=== PATIENT | male | born 1950 | race Caucasian/White ===

== ENCOUNTER 2017-12-04 09:46 | Inpatient (IN) ==
[2017-12-04] MEDS ORDERED: MECLIZINE 25 MG TABLET PO STA (12:32)
[2017-12-04] MEDS ORDERED: ASPIRIN CHEW 81 MG TABLET PO STA (12:32)
[2017-12-04] MEDS ORDERED: SODIUM CHLORIDE 0.9% 1,000 ML IV STA (12:34)
[2017-12-04 13:26] LABS: Basophils # 0.1 10*3/uL (0.0-0.2); Basophils % 0.2 % (0.0-0.8); Hematocrit 35.7 VOL% (42.0-52.0); Hemoglobin 11.2 GM/DL (14.0-18.0); Immature Granulocytes % 0.4 %; Immature Granulocytes Absolute 0.16 #; Lymphocytes # 39.3 10*3/uL (1.4-4.0); Lymphocytes % 87.6 % (21.2-54.2); Mean Corpuscular HGB Conc 31.4 GM/DL (32-36); Mean Corpuscular Hemoglobin 30 PG (27-34); Mean Corpuscular Volume 94.4 FL (87-102); Mean Platelet Volume 9.8 FL (9.6-12.0); Monocytes # 4.1 10*3/uL (0.11-0.8); Neutrophils # 1.3 10*3/uL (1.4-7.4); Neutrophils % 2.8 % (38.7-73.9); Platelet Count 80 T/CUMM (130-400); Red Blood Count 3.78 MC/CUMM (3.8-5.5); Red Cell Distribution Width 13.1 % (9.3-17.3)
[2017-12-04] MEDS ORDERED: MECLIZINE 25 MG TABLET ONE (13:30)
[2017-12-04] MEDS ORDERED: ASPIRIN 325 MG TABLET ONE (13:31)
[2017-12-04 13:32] LABS: White Blood Count 44.9 T/CUMM (4-12)
[2017-12-04 13:49] LABS: Lymphocytes 97 % (20-55); Platelet Estimate Decreased; Segmented Neutrophils 3 % (50-85); Smudge Cells 2+; Total Cells Counted 100
[2017-12-04 13:50] LABS: Poikilocytosis 1+
[2017-12-04 13:51] LABS: Ovalocytes Few; Tear Drop Cells 1+
[2017-12-04 14:12] LABS: Alanine Aminotransferase 13 U/L (16-61); Albumin 2.7 G/DL (3.4-5.0); Alkaline Phosphatase 93 U/L (45-117); Aspartate Amino Transferase 21 U/L (0-37); Blood Urea Nitrogen 12 MG/DL (7-18); Calcium 8.4 MG/DL (8.5-10.1); Glucose 112 MG/DL (74-106); Osmolality,Calculated 279.4 MOS/KG (273-304); Potassium 4.4 MMOL/L (3.5-5.1); Sodium 140 MMOL/L (136-145); Total Protein 5.4 G/DL (6.4-8.3); Troponin I Only < 0.015 NG/ML (0.00-0.045)
[2017-12-04 15:46] LABS: Apearance,Urine CLEAR (Clear); Bilirubin,Urine Negative (Negative); Blood, Urine Negative (Negative); Glucose,Urine (UA) Negative (Negative); Ketones,Urine Negative (Negative); Mucus,Urine Few /LPF (Occasional); Nitrite,Urine Negative (Negative); Protein,Urine Negative; RBC,Urine 2 /HPF (0-4); Squamous Epithelial Cell,Urine Occasional /HPF (0-10); Urine Color Yellow (Yellow); Urine Specific Gravity 1.023 (1.001-1.035); Urine Urobilinogen < 2.0 EU/DL (0.2-1.0); WBC,Urine 1 /HPF (0-6)
[2017-12-04] MEDS ORDERED: DOCUSATE SODIUM 100 MG CAPSULE PO PRN (17:23)
[2017-12-04] MEDS ORDERED: LABETALOL 20 MG/4 ML SYRINGE IV PRN (17:23)
[2017-12-04] MEDS ORDERED: LACTULOSE 20 GM/30 ML UDCUP PO PRN (17:23)
[2017-12-04] MEDS ORDERED: ONDANSETRON 4 MG/2 ML VIAL IV PRN ×2 (17:23)
[2017-12-04] MEDS ORDERED: ACETAMINOPHEN 500 MG TABLET PO PRN (17:23)
[2017-12-04] MEDS ORDERED: ENOXAPARIN 40 MG/0.4 ML SYRINGE SUBCUT SCH (17:30)
[2017-12-04] MEDS: PIPERACILLIN/TAZOBACTAM 3,375 MG in SODIUM CHLORIDE 0.9% 100 ML IV SCH (18:02)
[2017-12-04] MEDS: SODIUM CHLORIDE 0.9% 1,000 ML IV SCH (18:02)
[2017-12-04 18:17] LABS: Cholesterol 109 MG/DL (50-200); HDL Cholesterol 23 MG/DL (40-60); Risk Ratio 4.74; Triglycerides 73 MG/DL (2-150); Troponin I Only < 0.015 NG/ML (0.00-0.045); VLDL CHOLESTEROL 14.6 MG/DL
[2017-12-04 19:18] LABS: Barbiturates Screen,Urine Negative (Negative); Benzodiazepines Screen,Urine Negative (Negative); Cannabinoid Screen,Urine Negative (Negative); Opiate Screen,Urine Negative (Negative); Phencyclidine Screen,Urine Negative (Negative)
[2017-12-04] MEDS: MECLIZINE 25 MG TABLET PO SCH (21:09)
[2017-12-05] MEDS: PIPERACILLIN/TAZOBACTAM 3,375 MG in SODIUM CHLORIDE 0.9% 100 ML IV SCH ×4 (01:15→23:27)
[2017-12-05] MEDS: SODIUM CHLORIDE 0.9% 1,000 ML IV SCH ×3 (01:16→17:17)
[2017-12-05 05:28] LABS: Calcium 7.7 MG/DL (8.5-10.1); Osmolality,Calculated 283.1 MOS/KG (273-304); Potassium 4.2 MMOL/L (3.5-5.1)
[2017-12-05 05:31] LABS: Basophils # 0.1 10*3/uL (0.0-0.2); Basophils % 0.2 % (0.0-0.8); Hematocrit 32.2 VOL% (42.0-52.0); Immature Granulocytes % 0.2 %; Immature Granulocytes Absolute 0.08 #; Lymphocytes # 35.7 10*3/uL (1.4-4.0); Lymphocytes % 96.5 % (21.2-54.2); Mean Corpuscular HGB Conc 31.1 GM/DL (32-36); Mean Corpuscular Hemoglobin 30 PG (27-34); Mean Corpuscular Volume 95.5 FL (87-102); Mean Platelet Volume 10.4 FL (9.6-12.0); Monocytes # 0.2 10*3/uL (0.11-0.8); Monocytes % 0.6 % (1.7-12.7); Neutrophils # 0.9 10*3/uL (1.4-7.4); Neutrophils % 2.5 % (38.7-73.9); Platelet Count 85 T/CUMM (130-400); Red Blood Count 3.37 MC/CUMM (3.8-5.5); Red Cell Distribution Width 13.2 % (9.3-17.3)
[2017-12-05 06:05] LABS: Atypical Lymphocytes 1+; Band Neutrophils 2 % (0-10); Lymphocytes 97 % (20-55); Macrocytosis 1+; Platelet Estimate Decreased; Segmented Neutrophils 1 % (50-85); Smudge Cells Few; Total Cells Counted 100
[2017-12-05] MEDS: MECLIZINE 25 MG TABLET PO SCH ×4 (08:36→21:19)
[2017-12-05] MEDS: TAMSULOSIN 0.4 MG CAPSULE PO SCH (08:37)
[2017-12-05] MEDS: PANTOPRAZOLE 40 MG TABLET PO SCH (08:37)
[2017-12-05] MEDS: ASPIRIN EC 325 MG TABLET PO SCH (08:37)
[2017-12-05] MEDS ORDERED: methylPREDNISolone 4 MG TABLET PO SCH (14:30)
[2017-12-05] MEDS: methylPREDNISolone 4 MG TABLET PO SCH (21:19)
[2017-12-06] MEDS: SODIUM CHLORIDE 0.9% 1,000 ML IV SCH (03:21)
[2017-12-06 05:08] LABS: Hematocrit 33.1 VOL% (42.0-52.0); Hemoglobin 10.5 GM/DL (14.0-18.0); Immature Granulocytes % 0.3 %; Immature Granulocytes Absolute 0.15 #; Lymphocytes # 45.2 10*3/uL (1.4-4.0); Lymphocytes % 95.9 % (21.2-54.2); Mean Corpuscular HGB Conc 31.7 GM/DL (32-36); Mean Corpuscular Hemoglobin 29 PG (27-34); Mean Corpuscular Volume 92.7 FL (87-102); Mean Platelet Volume 10.4 FL (9.6-12.0); Monocytes # 0.4 10*3/uL (0.11-0.8); Monocytes % 0.9 % (1.7-12.7); Neutrophils # 1.4 10*3/uL (1.4-7.4); Neutrophils % 2.9 % (38.7-73.9); Platelet Count 87 T/CUMM (130-400); Red Blood Count 3.57 MC/CUMM (3.8-5.5); Red Cell Distribution Width 13.2 % (9.3-17.3)
[2017-12-06 05:27] LABS: White Blood Count 47.1 T/CUMM (4-12)
[2017-12-06 05:32] LABS: Hypochromasia Slight; Lymphocytes 93 % (20-55); Ovalocytes Slight; Platelet Estimate Decreased; Segmented Neutrophils 7 % (50-85); Total Cells Counted 100
[2017-12-06 05:33] LABS: Atypical Lymphocytes Few; Giant Platelets Few; Smudge Cells Few
[2017-12-06 05:35] LABS: Calcium 7.7 MG/DL (8.5-10.1); Osmolality,Calculated 280.4 MOS/KG (273-304); Potassium 4.3 MMOL/L (3.5-5.1)
[2017-12-06] MEDS: PIPERACILLIN/TAZOBACTAM 3,375 MG in SODIUM CHLORIDE 0.9% 100 ML IV SCH (09:00)
[2017-12-06] MEDS: TAMSULOSIN 0.4 MG CAPSULE PO SCH (09:01)
[2017-12-06] MEDS: PANTOPRAZOLE 40 MG TABLET PO SCH (09:01)
[2017-12-06] MEDS: MECLIZINE 25 MG TABLET PO SCH (09:01)
[2017-12-06] MEDS: methylPREDNISolone 4 MG TABLET PO SCH (09:01)
[2017-12-06] MEDS: ASPIRIN EC 325 MG TABLET PO SCH (09:01)
[2017-12-06 12:48] VITALS: BP 102/62
== END 2017-12-06 13:40 | disposition home or self-care (01) | DRG 149 ==
LOC: N.ED 09:46 → N.EDINP 13:33 → N.TELEN 16:09
PROVIDERS: ADMIT Hospitalist; ATTEND Hospitalist

== ENCOUNTER 2018-08-18 13:31 | Inpatient (IN) ==
[2018-08-18] MEDS ORDERED: SODIUM CHLORIDE 0.9% 1,000 ML IV ONE (14:12)
[2018-08-18] MEDS ORDERED: DILTIAZEM 50 MG/10 ML VIAL IV STA (14:15)
[2018-08-18 14:30] LABS: Basophils % 0.1 % (0.0-0.8); Hematocrit 27.2 VOL% (42.0-52.0); Hemoglobin 8.5 GM/DL (14.0-18.0); Immature Granulocytes % 0.1 %; Immature Granulocytes Absolute 0.01 #; Lymphocytes # 11.5 10*3/uL (1.4-4.0); Lymphocytes % 98.2 % (21.2-54.2); Mean Corpuscular HGB Conc 31.3 GM/DL (32-36); Mean Corpuscular Hemoglobin 29 PG (27-34); Mean Corpuscular Volume 91.6 FL (87-102); Mean Platelet Volume 11.1 FL (9.6-12.0); Monocytes % 0.3 % (1.7-12.7); Neutrophils # 0.2 10*3/uL (1.4-7.4); Neutrophils % 1.3 % (38.7-73.9); Red Blood Count 2.97 MC/CUMM (3.8-5.5); Red Cell Distribution Width 17.2 % (9.3-17.3); White Blood Count 11.7 T/CUMM (4-12)
[2018-08-18] MEDS ORDERED: DILTIAZEM INJ 100 MG in SODIUM CHLORIDE 0.9% 100 ML IV SCH (14:30)
[2018-08-18 14:44] LABS: Alanine Aminotransferase 37 U/L (16-61); Albumin 1.1 G/DL (3.4-5.0); Alkaline Phosphatase 56 U/L (45-117); Aspartate Amino Transferase 16 U/L (0-37); Blood Urea Nitrogen 33 MG/DL (7-18); Calcium 7.2 MG/DL (8.5-10.1); Glucose 111 MG/DL (74-106); Osmolality,Calculated 282.7 MOS/KG (273-304); Potassium 4.4 MMOL/L (3.5-5.1); Sodium 138 MMOL/L (136-145); Total Protein 4.3 G/DL (6.4-8.3)
[2018-08-18 14:46] LABS: INR 1.3; PT Patient Result 13.6 SECS
[2018-08-18] MEDS ORDERED: PIPERACILLIN/TAZOBACTAM 3,375 MG in SODIUM CHLORIDE 0.9% 100 ML IV STA (14:55)
[2018-08-18] MEDS ORDERED: DILTIAZEM 25 MG/5 ML VIAL IV ONE (14:55)
[2018-08-18 14:57] LABS: Lactic Acid 3.6 MMOL/L (0.4-2.0); Partial Thromboplastin Time 46.8 SECS (0-40)
[2018-08-18] MEDS ORDERED: SODIUM CHLORIDE 0.9% 1,000 ML IV STA ×2 (15:07→15:37)
[2018-08-18] MEDS ORDERED: PHENYLEPHRINE DRIP 40 MG/250 ML PREMIX IV ONE (15:25)
[2018-08-18] MEDS: PHENYLEPHRINE DRIP 40 MG/250 ML PREMIX IV PRN ×3 (15:30→20:03)
[2018-08-18] MEDS ORDERED: dilTIAZem Drip 125 MG/125 ML PREMIX IV SCH (15:30)
[2018-08-18 15:37] LABS: Platelet Count 21 T/CUMM (130-400)
[2018-08-18 15:45] LABS: Lymphocytes 99 % (20-55); Segmented Neutrophils 1 % (50-85); Total Cells Counted 100
[2018-08-18 15:46] LABS: Hypochromasia Slight; Platelet Estimate Decreased; Smudge Cells Moderate
[2018-08-18] MEDS ORDERED: SODIUM CHLORIDE 0.9% 1,000 ML IV PRN ×2 (16:02→17:50)
[2018-08-18] MEDS ORDERED: PROPOFOL 1,000 MG/100 ML BOTTLE IV ONE (16:29)
[2018-08-18] MEDS ORDERED: SUCCINYLCHOLINE 200 MG/10 ML VIAL ONE (16:30)
[2018-08-18] MEDS ORDERED: ETOMIDATE 20 MG/10 ML VIAL IV ONE ×2 (16:30→17:59)
[2018-08-18] MEDS ORDERED: ONDANSETRON 4 MG/2 ML VIAL IV PRN (16:38)
[2018-08-18] MEDS ORDERED: PANTOPRAZOLE 40 MG TABLET PO SCH (16:38)
[2018-08-18] MEDS ORDERED: ACETAMINOPHEN 325 MG TABLET PO PRN (16:38)
[2018-08-18] MEDS ORDERED: AMIODARONE 450 MG/9 ML VIAL IV ONE (16:42)
[2018-08-18] MEDS ORDERED: AMIODARONE INJ 450 MG in DEXTROSE 5% 241 ML IV SCH (17:00)
[2018-08-18 17:04] LABS: Thyroid Stimulating Hormone 0.461 uIU/ml (0.358-3.74)
[2018-08-18 17:27] LABS: ABG Base Excess -7.5 MMOL/L (-2.5-2.5); ABG HCO3 18.9 MMOL/L (20-26); ABG Oxygen Saturation 98.7 % (95-100); ABG PCO2 41.8 MM HG (35-48); ABG PH 7.273 (7.35-7.45); ABG PO2 190.1 MM HG (80-95); ABG TCO2 20.2 MMOL/L (23-27)
[2018-08-18 17:50] LABS: Apearance,Urine CLOUDY (Clear); Bilirubin,Urine Negative (Negative); Blood, Urine Negative (Negative); Glucose,Urine (UA) Negative (Negative); Ketones,Urine Negative (Negative); Mucus,Urine Occasional /LPF (Occasional); Nitrite,Urine Negative (Negative); Protein,Urine 30 MG/DL; RBC,Urine 4 /HPF (0-4); Urine Specific Gravity 1.021 (1.001-1.035); WBC,Urine 6 /HPF (0-6)
[2018-08-18 17:51] LABS: Urine Color Yellow (Yellow)
[2018-08-18] MEDS ORDERED: SUCCINYLCHOLINE 200 MG/10 ML VIAL IV ONE (18:00)
[2018-08-18] MEDS: PROPOFOL 1,000 MG/100 ML BOTTLE IV SCH ×2 (18:14→23:12)
[2018-08-18] MEDS: MEROPENEM 1,000 MG in SODIUM CHLORIDE 0.9% 100 ML IV SCH (18:33)
[2018-08-18] MEDS: NOREPINEPHRINE 16 MG in SODIUM CHLORIDE 0.9% 234 ML IV PRN (18:40)
[2018-08-18 18:56] LABS: ABG Base Excess -7.3 MMOL/L (-2.5-2.5); ABG HCO3 19.1 MMOL/L (20-26); ABG Oxygen Saturation 97.5 % (95-100); ABG PCO2 42.5 MM HG (35-48); ABG PH 7.271 (7.35-7.45); ABG PO2 121.6 MM HG (80-95); ABG TCO2 20.4 MMOL/L (23-27)
[2018-08-18 19:04] LABS: Troponin I 0.222 NG/ML (0.00-0.045)
[2018-08-18] MEDS: VANCOMYCIN INJ 1,000 MG in SODIUM CHLORIDE 0.9% 250 ML IV SCH (19:07)
[2018-08-18] MEDS: HYDROCORTISONE 100 MG VIAL IV SCH (19:14)
[2018-08-18] MEDS: FAMOTIDINE 20 MG/2 ML VIAL IV SCH (19:14)
[2018-08-18] MEDS: SODIUM BICARB INJ 100 MEQ in SODIUM CHLORIDE 0.45% 1,000 ML IV SCH (20:23)
[2018-08-18] MEDS ORDERED: PIPERACILLIN/TAZOBACTAM 3,375 MG in SODIUM CHLORIDE 0.9% 100 ML IV SCH (21:00)
[2018-08-18] MEDS: PHENYLEPHRINE INJ 160 MG in SODIUM CHLORIDE 0.9% 234 ML IV PRN (21:56)
[2018-08-18] MEDS: AMIODARONE INJ 450 MG in DEXTROSE 5% 241 ML IV SCH (23:36)
[2018-08-19] MEDS: HYDROCORTISONE 100 MG VIAL IV SCH ×3 (01:40→17:22)
[2018-08-19] MEDS: MEROPENEM 1,000 MG in SODIUM CHLORIDE 0.9% 100 ML IV SCH ×3 (03:06→17:42)
[2018-08-19 04:39] LABS: Basophils # 0.1 10*3/uL (0.0-0.2); Basophils % 0.2 % (0.0-0.8); Hematocrit 29.3 VOL% (42.0-52.0); Hemoglobin 8.8 GM/DL (14.0-18.0); Lymphocytes # 38.5 10*3/uL (1.4-4.0); Lymphocytes % 99.3 % (21.2-54.2); Mean Corpuscular Hemoglobin 28 PG (27-34); Mean Corpuscular Volume 93.9 FL (87-102); Mean Platelet Volume 12.6 FL (9.6-12.0); Monocytes # 0.1 10*3/uL (0.11-0.8); Monocytes % 0.3 % (1.7-12.7); Neutrophils # 0.1 10*3/uL (1.4-7.4); Neutrophils % 0.2 % (38.7-73.9); Red Blood Count 3.12 MC/CUMM (3.8-5.5); Red Cell Distribution Width 17.3 % (9.3-17.3); White Blood Count 38.8 T/CUMM (4-12)
[2018-08-19 04:44] LABS: Platelet Count 41 T/CUMM (130-400)
[2018-08-19 04:58] LABS: Osmolality,Calculated 297.1 MOS/KG (273-304); Potassium 4.3 MMOL/L (3.5-5.1)
[2018-08-19 05:01] LABS: Alanine Aminotransferase 29 U/L (16-61); Albumin 1.1 G/DL (3.4-5.0); Alkaline Phosphatase 49 U/L (45-117); Aspartate Amino Transferase 21 U/L (0-37); Blood Urea Nitrogen 42 MG/DL (7-18); Calcium 6.5 MG/DL (8.5-10.1); Cholesterol < 50 MG/DL (50-200); Glucose 151 MG/DL (74-106); HDL Cholesterol 11 MG/DL (40-60); Potassium 4.3 MMOL/L (3.5-5.1); Risk Ratio 4.55; Sodium 143 MMOL/L (136-145); Total Protein 4.1 G/DL (6.4-8.3); Triglycerides 75 MG/DL (2-150)
[2018-08-19 05:02] LABS: ABG Base Excess -5.6 MMOL/L (-2.5-2.5); ABG HCO3 20.7 MMOL/L (20-26); ABG Oxygen Saturation 97.8 % (95-100); ABG PH 7.291 (7.35-7.45); ABG PO2 124.4 MM HG (80-95); ABG TCO2 22.1 MMOL/L (23-27); Allen Test Positive; Pt O2 Delivery Device Ventilator
[2018-08-19] MEDS: PHENYLEPHRINE INJ 160 MG in SODIUM CHLORIDE 0.9% 234 ML IV PRN ×3 (05:04→20:29)
[2018-08-19] MEDS: NOREPINEPHRINE 16 MG in SODIUM CHLORIDE 0.9% 234 ML IV PRN ×3 (05:04→19:29)
[2018-08-19 05:06] LABS: Lymphocytes 100 % (20-55); Platelet Estimate Decreased; Polychromasia Few; Total Cells Counted 100
[2018-08-19] MEDS: FAMOTIDINE 20 MG/2 ML VIAL IV SCH ×2 (05:23→17:42)
[2018-08-19] MEDS: VANCOMYCIN INJ 1,000 MG in SODIUM CHLORIDE 0.9% 250 ML IV SCH ×2 (05:23→19:17)
[2018-08-19 06:33] LABS: Troponin I 0.284 NG/ML (0.00-0.045)
[2018-08-19] MEDS: PROPOFOL 1,000 MG/100 ML BOTTLE IV SCH ×4 (07:30→23:45)
[2018-08-19] MEDS: ALBUMIN 25% 12.5 GM in PREMIX 1 EACH IV SCH ×3 (07:59→23:57)
[2018-08-19] MEDS: FUROSEMIDE 20 MG/2 ML VIAL IV SCH ×2 (08:20→16:42)
[2018-08-19] MEDS: SODIUM BICARB INJ 100 MEQ in SODIUM CHLORIDE 0.45% 1,000 ML IV SCH (08:22)
[2018-08-19] MEDS ORDERED: MAGNESIUM SULF RIDER 2 GM in PREMIX 1 EACH IV ONE (08:30)
[2018-08-19] MEDS ORDERED: DEXTROSE 50% 25 GM/50 ML SYRINGE IV PRN (08:58)
[2018-08-19] MEDS ORDERED: GLUCAGON 1 MG VIAL IM PRN (08:58)
[2018-08-19] MEDS ORDERED: CALCIUM GLUCONATE 2,000 MG in SODIUM CHLORIDE 0.9% 100 ML IV ONE (09:00)
[2018-08-19] MEDS ORDERED: SODIUM CHLORIDE 0.9% 1,000 ML IV PRN (12:04)
[2018-08-19] MEDS ORDERED: INSULIN GLARGINE 100 UNIT/ML SUBCUT SCH (12:30)
[2018-08-19] MEDS: INSULIN REGULAR 100 UNIT/ML SUBCUT SCH ×3 (12:48→23:57)
[2018-08-19] MEDS: AMIODARONE INJ 450 MG in DEXTROSE 5% 241 ML IV SCH (15:15)
[2018-08-19] MEDS: LEVALBUTEROL 1.25 MG/3 ML NEB RESP TX SCH ×2 (15:22→23:26)
[2018-08-19] MEDS: MORPHINE 4 MG/1 ML VIAL IV PRN (23:24)
[2018-08-20] MEDS: MEROPENEM 1,000 MG in SODIUM CHLORIDE 0.9% 100 ML IV SCH ×2 (01:05→02:26)
[2018-08-20] MEDS: HYDROCORTISONE 100 MG VIAL IV SCH (01:05)
[2018-08-20] MEDS: NOREPINEPHRINE 16 MG in SODIUM CHLORIDE 0.9% 234 ML IV PRN (02:42)
[2018-08-20 03:14] LABS: ABG Base Excess -0.8 MMOL/L (-2.5-2.5); ABG HCO3 23.8 MMOL/L (20-26); ABG Oxygen Saturation 98.7 % (95-100); ABG PCO2 39.1 MM HG (35-48); ABG PH 7.403 (7.35-7.45); ABG PO2 145.9 MM HG (80-95); Allen Test Positive; Pt O2 Delivery Device Ventilator
[2018-08-20] MEDS: PHENYLEPHRINE INJ 160 MG in SODIUM CHLORIDE 0.9% 234 ML IV PRN (03:39)
[2018-08-20 05:29] LABS: Basophils % 0.2 % (0.0-0.8); Hematocrit 24.7 VOL% (42.0-52.0); Hemoglobin 7.5 GM/DL (14.0-18.0); Lymphocytes # 12.2 10*3/uL (1.4-4.0); Lymphocytes % 96.4 % (21.2-54.2); Mean Corpuscular HGB Conc 30.4 GM/DL (32-36); Mean Corpuscular Hemoglobin 29 PG (27-34); Mean Corpuscular Volume 93.9 FL (87-102); Mean Platelet Volume 11.7 FL (9.6-12.0); Monocytes # 0.1 10*3/uL (0.11-0.8); Monocytes % 1.1 % (1.7-12.7); Neutrophils # 0.3 10*3/uL (1.4-7.4); Neutrophils % 2.3 % (38.7-73.9); Red Blood Count 2.63 MC/CUMM (3.8-5.5); Red Cell Distribution Width 17.3 % (9.3-17.3); White Blood Count 12.6 T/CUMM (4-12)
[2018-08-20 05:42] LABS: Platelet Count 15 T/CUMM (130-400)
[2018-08-20 05:45] LABS: Blood Urea Nitrogen 51 MG/DL (7-18); Calcium 6.4 MG/DL (8.5-10.1); Glucose 159 MG/DL (74-106); Osmolality,Calculated 310.3 MOS/KG (273-304); Potassium 3.4 MMOL/L (3.5-5.1); Prealbumin < 3.0 MG/DL (20-40); Sodium 148 MMOL/L (136-145)
[2018-08-20 06:06] LABS: Hypochromasia Slight; Lymphocytes 97 % (20-55); Platelet Estimate Decreased; Segmented Neutrophils 1 % (50-85); Total Cells Counted 100
[2018-08-20] MEDS: MORPHINE 4 MG/1 ML VIAL IV PRN ×3 (06:08→11:44)
[2018-08-20] MEDS: FAMOTIDINE 20 MG/2 ML VIAL IV SCH (06:18)
[2018-08-20] MEDS: INSULIN REGULAR 100 UNIT/ML SUBCUT SCH (06:18)
[2018-08-20] MEDS: VANCOMYCIN INJ 1,000 MG in SODIUM CHLORIDE 0.9% 250 ML IV SCH (06:18)
[2018-08-20] MEDS: PROPOFOL 1,000 MG/100 ML BOTTLE IV SCH (07:36)
[2018-08-20] MEDS: AMIODARONE INJ 450 MG in DEXTROSE 5% 241 ML IV SCH (07:37)
[2018-08-20] MEDS: ALBUMIN 25% 12.5 GM in PREMIX 1 EACH IV SCH (07:44)
[2018-08-20] MEDS: LEVALBUTEROL 1.25 MG/3 ML NEB RESP TX SCH (07:55)
[2018-08-20] MEDS: FUROSEMIDE 20 MG/2 ML VIAL IV SCH (09:57)
[2018-08-20 14:03] VITALS: BP 61/29
== END 2018-08-20 13:45 | disposition expired | DRG 871 ==
LOC: N.ED 13:31 → N.ICU 15:54 → SUATTDRO 15:54 → N.ICU 16:25
PROVIDERS: ADMIT Internal Medicine; ATTEND Hospitalist